=== PATIENT | male | born 1955 | race Caucasian/White ===

== ENCOUNTER → 2019-06-19 | Day surgery (SDC) | payer BC ==
[~2019-06-19] MED LIST: Lactated Ringers 1,000 ML IV SCH; Propofol 200 MG/20 ML SDV IV ONE; fentaNYL 100 MCG/2 ML SDV IV ONE
--- NOTE | 2019-06-19 16:47 | OR ---
DATE OF OPERATION: 06/19/2019 PREOPERATIVE DIAGNOSIS: LEFT LOWER QUADRANT PAIN. POSTOPERATIVE DIAGNOSIS: MODERATE DIVERTICULOSIS. SURGEON: Franky Ruth MD PROCEDURE: FULL-LENGTH COLONOSCOPY WITH FORCEPS POLYP REMOVAL X2. ANESTHESIA: MAC. COMPLICATIONS: None. SPECIMEN: Two small sessile polyps, rectosigmoid junction. FINDINGS: 1. Full-length diagnostic colonoscopy. 2. Moderate sigmoid diverticulosis. 3. Sessile polyps x2, 3 mm or less in the rectosigmoid junction. 4. Prominent internal hemorrhoids. RECOMMENDATIONS: Followup colonoscopy in 5 years. Routine conservative measures for diverticular disease. INDICATIONS: The patient was seen in [facility] for acute onset of left lower quadrant pain. Workup was essentially unremarkable other than diverticular disease. Dr. Wolff sent him for diagnostic endoscopy as he has a history of polyps in the past. DESCRIPTION OF PROCEDURE: The patient was prepped and draped, placed in the left lateral decubitus position. A lubricated Olympus colonoscope was inserted and easily advanced to the cecum. We were able to directly visualize the ileocecal valve and appendiceal orifice. The bowel prep was fine. Upon withdrawal of the scope, the cecum, ascending and transverse colons were completely unremarkable as was the descending colon. The patient has prominent diverticular disease throughout the sigmoid and into the rectosigmoid junction, at least moderate in severity. No inflammatory changes or signs of recent infection were seen. In the rectosigmoid junction, there were 2 small flat sessile polyps, each about 3 mm, both removed with a forceps biopsy in their entirety. The rectal vault was unremarkable. Retroflexion confirmed prominent internal hemorrhoids. Air was then suctioned, scope removed without complication. RAEANN/POONAM /[id number]
== END ==
LOC: CC.SDS 09:17
PROVIDERS: ATTEND Family Medicine
DX: K63.5 Polyp of colon (principal); K57.30 Diverticulosis of large intestine without perforation or abscess without bleeding; K64.8 Other hemorrhoids; N39.0 Urinary tract infection, site not specified; I10 Essential (primary) hypertension; E66.9 Obesity, unspecified; R31.9 Hematuria, unspecified; Z87.891 Personal history of nicotine dependence; F41.9 Anxiety disorder, unspecified; C43.9 Malignant melanoma of skin, unspecified; Z86.010 Personal history of colon polyps; Z85.858 Personal history of malignant neoplasm of other endocrine glands; Z90.89 Acquired absence of other organs; Z68.38 Body mass index [BMI] 38.0-38.9, adult; Z79.899 Other long term (current) drug therapy
CPT/HCPCS: 45380; J2704; J3010; J7120